=== PATIENT | male | born 1990 ===

== ENCOUNTER 2021-05-08 17:39 | Emergency (ER) | payer MEDICAID, OTHER ==
[~2021-05-08] VITALS: Ht 185.4 cm; Wt 93.0 kg
[2021-05-08] MEDS ORDERED: KETOROLAC TROMETH 60MG/2ML VIAL IM ONE (22:30)
[2021-05-08 22:49] VITALS: BP 138/72
== END 2021-05-08 22:50 | disposition home or self-care (01) ==
LOC: ER 17:39
DX: S93.402A Sprain of unspecified ligament of left ankle, initial encounter (principal); X50.1XXA Overexertion from prolonged static or awkward postures, initial encounter; Y93.89 Activity, other specified; Y92.89 Other specified places as the place of occurrence of the external cause; Y99.8 Other external cause status
CPT/HCPCS: 73610; 96372; 99283; J1885